=== PATIENT | female | born 1970 | race Caucasian/White ===

== ENCOUNTER 2017-02-07 11:32 | Emergency (ER) | payer OTHER ==
[2017-02-07 13:00] LABS: BUN/CREATININE RATIO 11 (0-10)
[2017-02-07 13:12] LABS: RED BLOOD COUNT 5.25 M/UL (4.00-5.10); WHITE BLOOD COUNT 9.5 K/UL (4.5-11.0)
== END 2017-02-07 14:00 | disposition home or self-care (01) ==
LOC: ER1 11:32
PROVIDERS: Emergency Medicine
DX: R10.84 Generalized abdominal pain (principal); F41.9 Anxiety disorder, unspecified; Z98.51 Tubal ligation status; Z90.49 Acquired absence of other specified parts of digestive tract
CPT/HCPCS: 36415; 80053; 80307; 81001; 84703; 85025; 87086; 99284